=== PATIENT | male | born 1965 | race Caucasian/White ===

== ENCOUNTER 2016-05-04 04:49 | Inpatient (IN) | payer MEDICAID, OTHER ==
[2016-05-04] VITALS (13 sets, daily range): BP systolic 122–150; BP diastolic 62–89
[~2016-05-04] VITALS: Ht 180.3 cm; Wt 97.5 kg
[2016-05-04] MEDS ORDERED: Mylanta II UD 30ml ORAL ONE (05:00)
[2016-05-04] MEDS ORDERED: Lidocaine 2% Visc 15ml soln ORAL ONE (05:00)
[2016-05-04] MEDS ORDERED: Pantoprazole Inj IVP ONE (05:00)
--- NOTE | 2016-05-04 05:02 | Emergency Room Report ---
History of Present Illness General Chief Complaint: To Be Triaged Source: Patient (FLORENCIO VELAZQUEZ M.D.) Present Illness HPI This is a 51-year-old male who presents with chest pain that been ongoing for 4- 5 days now. Said is pretty persistent and constant for the last day. Described as a burning and fullness sensation to the solar plexus. Is usually worse at night. Worse when he lay flat. Said he felt a sour taste in his mouth. Similar symptoms 6 months ago and he went to [facility]. Lab work shows normal. CT scan of the chest was negative. He has not followup with anybody yet. Denies any exertional pain. No shortness of breath. No diaphoresis. He drove himself here. Radiates to back. (FLORENCIO VELAZQUEZ M.D.) Allergies: Coded Allergies: No Known Allergies (Unverified , 05/04/16) Patient History Past Medical History: see triage record, old chart reviewed Past Surgical History: none Pertinent Family History: none Social History: Denies: drug use Immunizations: other Reviewed Nursing Documentation: PMH: Agreed, PSxH: Agreed (FLORENCIO VELAZQUEZ M.D.) Review of Systems Eye: Denies: blurred vision, eye pain ENT: Denies: ear pain, nose congestion, throat swelling Respiratory: Denies: cough, shortness of breath Cardiovascular: Reports: chest pain, Denies: palpitations Gastrointestinal: Denies: abdominal pain, diarrhea, nausea, vomiting Musculoskeletal: Denies: back pain, joint pain Skin: Denies: rash Neurological: Denies: headache, numbness Endocrine: Denies: increased thirst, increased urine Hematologic/Lymphatic: Denies: easy bruising All Other Systems: negative except mentioned in HPI (FLORENCIO VELAZQUEZ M.D.) Physical Exam vitals unremarkable Sp02 EP Interpretation: reviewed, normal General Appearance: well appearing, no apparent distress, alert, obese Head: normocephalic, atraumatic Eyes: bilateral eye EOMI, bilateral eye PERRL ENT: hearing grossly normal, normal pharynx Neck: full range of motion, supple, no meningismus Respiratory: chest non-tender, lungs clear, normal breath sounds Cardiovascular #1: regular rate, rhythm, no murmur Gastrointestinal: normal bowel sounds, no mass, no organomegaly, no bruit, non- distended, tenderness - ruq Musculoskeletal: back normal, gait/station normal, normal range of motion Neurologic: alert, oriented x3 Psychiatric: mood/affect normal Skin: warm/dry (FLORENCIO VELAZQUEZ M.D.) Procedures Critical Care Time Critical Care Time Total CC time 45 minutes Care for 51 YO M with RUQ pain, leukocytosis. DDx includes Appy, acute kevin, colitis Patient is afebrile, normal vital signs Sono with ?cholecystitis Care included fluid resuscitation, imaging, serial abd exams, empiric Abx, discussions with patient on possible surgery, consult to general surgery, interpretation of laboratory results and imaging 45 minutes of critical care time was spent with this patient not including time spent performing separately reportable procedures. (CORI PATEL M.D.) Medical Decision Making Diagnostic Impression: Primary Impression: Atypical chest pain Additional Impression: Acute gangrenous cholecystitis ER Course Patient presents with chest pain but really epigastric and right upper quadrant pain. He does have an elevated white count. We'll get ultrasound to rule out cholecystitis. I see no evidence of ACS, PE, dissection in this patient. I will sign this patient out to Dr. Patel for final disposition. Lab Results Impression Labs with elevated wbc (FLORENCIO VELAZQUEZ M.D.) ER Course Received signout from Dr Velazquez at 630 am to f/up Abd sono for patient with 3-4 days RUQ/epigastric pain, worse with eating. VSS. Afebrile Labs: Leuks 18k Reviewed sono with tech. ?large gallstone in GB neck. No perichol fluid. + sonographic Claunch. Empiric Cefoxitin given Coags, T&S sent to lab Patient required additional analgesia Consulted Dr Kennedy at 820pm. Agrees with plan. Bedside currently, to take patient to OR. Admitted to Dr Bryant at 904am. (CORI PATEL M.D.) EKG Diagnostic Results Rate: normal Rhythm: NSR ST Segments: no acute changes (FLORENCIO VELAZQUEZ M.D.) Rhythm Strip Diag. Results EP Interpretation: yes Rate: 88 Rhythm: NSR, no PVC's, no ectopy (FLORENCIO VELAZQUEZ M.D.) Chest X-Ray Diagnostic Results EP Interpretation: Yes Findings: no consolidation, no effusion, no pneumothorax, no acute cardiopulmonary disease Number of Views: 1 (FLORENCIO VELAZQUEZ M.D.) CT/MRI/US Diagnostic Results CT/MRI/US Diagnostic Results : Imaging Test Ordered: US Impression Read by radiologist as acute cholecystitis. (FLORENCIO VELAZQUEZ M.D.) Status: improved (FLORENCIO VELAZQUEZ M.D.) Status: improved (CORI PATEL M.D.) Disposition: ADMITTED INPATIENT Condition: Critical FLORENCIO VELAZQUEZ M.D. May 04, 2016 05:02 CORI PATEL M.D. May 04, 2016 08:42
[2016-05-04] MEDS ORDERED: NKM (05:03)
[2016-05-04 05:40] LABS: MEAN CORPUSCULAR HEMOGLOBIN 31.1 PG (27.0-31.0); MEAN CORPUSCULAR HGB CONC 34.8 G/DL (32.0-36.0); MEAN CORPUSCULAR VOLUME 89 FL (80-99); MEAN PLATELET VOLUME 6.5 FL (6.5-10.1); PLATELET COUNT 292 K/UL (150-450); RED BLOOD COUNT 5.45 M/UL (4.70-6.10); RED CELL DISTRIBUTION WIDTH 10.7 % (11.6-14.8); WHITE BLOOD COUNT 18.1 K/UL (4.8-10.8)
[2016-05-04] MEDS ORDERED: HYDROmorphone 1mg/ml Carpuject IVP ONE ×2 (06:00→09:40)
[2016-05-04 06:02] LABS: ALANINE AMINOTRANSFERASE 21 U/L (3-41); ANION GAP 16 (5-15); ASPARTATE AMINO TRANSFERASE 14 U/L (5-40); CALCIUM 9.2 mg/dL (8.6-10.2); CARBON DIOXIDE 25 mEQ/L (20-30); CHLORIDE 100 mEQ/L (98-107); CREATININE 1.2 mg/dL (0.7-1.2); GLOMERULAR FILTRATION RATE > 60 mL/min (>60); HEMOLYSIS 12; POTASSIUM 4.5 mEQ/L (3.4-4.9); SODIUM 141 mEQ/L (135-145); TOTAL PROTEIN 7.5 g/dL (6.6-8.7)
[2016-05-04 06:09] LABS: TROPONIN I < 0.30 ng/mL (<=0.30)
[2016-05-04 07:02] LABS: BILIRUBIN,DIRECT 0.3 mg/dL (0.1-0.3)
[2016-05-04] MEDS ORDERED: cefOXitin Sod 1 GM in D5W 55 ML IVPB STA (07:50)
[2016-05-04] MEDS ORDERED: cefOXitin 1gm Inj ONE (08:07)
[2016-05-04] MEDS ORDERED: Tubing IV Cassette IV ONE (08:07)
[2016-05-04] MEDS ORDERED: D5W 55 ML IV ONE (08:07)
[2016-05-04] MEDS ORDERED: Morphine Sulfate 4mg/ml Inj IVP ONE (08:15)
[2016-05-04 09:03] LABS: INR 1.1 (0.9-1.1); PROTHROMBIN TIME 10.7 SEC (9.30-11.50)
[2016-05-04] MEDS ORDERED: LR 1000ml 1,000 ML ONE (09:04)
[2016-05-04] MEDS ORDERED: LR 1000ml 1,000 ML IV SCH (09:15)
--- NOTE | 2016-05-04 09:24 | Pre-Procedure Note/Attestation ---
Pre-Procedure Note/Attestation Complete Prior to Procedure Procedure Narrative: laparoscopic cholecystectomy, possible open Indications for Procedure Pre-Operative Diagnosis: cholelithiasis, cholecystitis Attestation I attest that I discussed the nature of the procedure; its benefits; risks and complications; and alternatives (and the risks and benefits of such alternatives ), prior to the procedure, with the patient (or the patient's legal contracts representative). I attest that, if there was a reasonable possibility of needing a blood transfusion, the patient (or the patient's legal contracts representative) was given the [facility] standardized written summary, pursuant to the [place] Blood Safety Act ([place] Health and Safety Code # 1645, as amended). I attest that I re-evaluated the patient just prior to the surgery and that there has been no change in the patient's H&P, except as documented below: RO MELGOZA May 04, 2016 09:24
--- NOTE | 2016-05-04 09:29 | General Progress Note ---
Progress Note Progress Note 51 y/o male with hx increasing abdominal pain RUQ, epigastrium for 5- 6 days after pizza meal. Similar pain off and on for about 1 year, no jaundice or dark urine. Abdominal ultrasound: impacted stone at GB neck, thick wall to 7 mm. Nl CBD Exam: t 98.6 r :16 Lungs :clear Cor: RSR Abdomen: soft , RUQ tenderness, sl fullness, ? mass. WBC 18K H/H 17/48 Lytes, LFT's: normal Impression: acute cholecystitis Plan: to [facility] for lap kevin, possible open.. Patien understands indications, risks, possible complications and wishes to proceed. To OR today. RO MELGOZA May 04, 2016 09:29
[2016-05-04] MEDS ORDERED: Iothalamate Meglumine 60% 30ML INJ ONE (09:51)
[2016-05-04] MEDS ORDERED: Bupivacaine w/Epi 0.25% 30ml Vial INJ ONE (09:51)
[2016-05-04] MEDS ORDERED: Midazolam 2mg/2ml Inj ONE ×2 (10:00)
[2016-05-04] MEDS ORDERED: Dexamethasone 4mg/ml vial ONE ×2 (10:00)
[2016-05-04] MEDS ORDERED: LR 1000ml ONE ×2 (10:00)
[2016-05-04] MEDS ORDERED: Lidocaine 1% MPF 10mg/ml 5ml ONE ×2 (10:00)
[2016-05-04] MEDS ORDERED: Ketorolac 30mg Inj ONE ×2 (10:00)
[2016-05-04] MEDS ORDERED: NS Irrig 1000ml ONE (10:00)
[2016-05-04] MEDS ORDERED: Propofol 10mg/ml 20ml IV ONE (10:00)
[2016-05-04] MEDS ORDERED: Zemuron 50mg/5ml Inj IV ONE ×2 (10:00)
[2016-05-04] MEDS ORDERED: fentaNYL 250mcg/5ml ONE (10:00)
[2016-05-04] MEDS ORDERED: Sterile Water Irrig 1000ml IRRIG ONE (10:00)
[2016-05-04] MEDS ORDERED: Succinylcholine 20mg/ml 10ml vial ONE ×2 (10:00)
[2016-05-04] MEDS ORDERED: Metoclopramide 10mg/2ml Inj ONE ×2 (10:00)
--- NOTE | 2016-05-04 10:39 | Anethesia Preoperative Eval ---
Anesthesia Pre-op PMH/ROS General Date of Evaluation: May 04, 2016 Anesthesiologist: Ryan ASA Score: ASA 2 Mallampati Score Class I : Soft palate, uvula, fauces, pillars visible Class II: Soft palate, uvula, fauces visible Class III: Soft palate, base of uvula visible Class IV: Only hard plate visible Mallampati Classification: Class II Surgeon: Brent Diagnosis: Acute cholecystitis Surgical Procedure: Laparoscopic cholecystectomy Anesthesia History: none Family History: no anesthesia problems Allergies: Coded Allergies: No Known Allergies (Unverified , 05/04/16) Medications: see eMAR Past Medical History Cardiovascular: Denies: CAD, HTN, [place], arrhythmia, other, valve dz Pulmonary: Denies: COPD, DENISE, asthma, other Gastrointestinal/Genitourinary: Reports: GERD, other - acute cholecystitis, Denies: CRI, ESRD Neurologic/Psychiatric: Denies: CVA, TIA, dementia, depression/anxiety, other Endocrine: Denies: DM, hypothyroidism, other, steroids HEENT: Denies: SELDOVIA (L), SELDOVIA (R), cataract (L), cataract (R), glaucoma, other Hematology/Immune: Denies: DVT, anemia, bleeding disorder, other Musculoskeletal/Integumentary: Denies: DDD, DJD, OA, RA, edema, other Other: other - overweight PSxH Narrative: foot sx Anesthesia Pre-op Phys. Exam Physician Exam Last Vital Signs Date Time Temp Pulse Resp B/P Pulse Ox O2 Delivery O2 Flow Rate FiO2 05/04/16 09:38 97.5 110 16 145/77 99 Room Air Constitutional: NAD, other - moderately ancxious Cardiovascular: other - tachy Airway Exam Mallampati Score: Class II MO: full ROM: full Teeth: intact Anesthesia Pre-op A/P Labs Hematology Test 05/04/16 05:05 White Blood Count 18.1 K/UL (4.8-10.8) H Red Blood Count 5.45 M/UL (4.70-6.10) Hemoglobin 17.0 G/DL (14.2-18.0) Hematocrit 48.7 % (42.0-52.0) Mean Corpuscular Volume 89 FL (80-99) Mean Corpuscular Hemoglobin 31.1 PG (27.0-31.0) H Mean Corpuscular Hemoglobin Concent 34.8 G/DL (32.0-36.0) Red Cell Distribution Width 10.7 % (11.6-14.8) L Platelet Count 292 K/UL (150-450) Mean Platelet Volume 6.5 FL (6.5-10.1) Neutrophils (%) (Auto) % (45.0-75.0) Lymphocytes (%) (Auto) % (20.0-45.0) Monocytes (%) (Auto) % (1.0-10.0) Eosinophils (%) (Auto) % (0.0-3.0) Basophils (%) (Auto) % (0.0-2.0) Coagulation Test 05/04/16 08:35 Prothrombin Time 10.7 SEC (9.30-11.50) Prothromb Time International Ratio 1.1 (0.9-1.1) Activated Partial Thromboplast Time 24 SEC (23-33) Chemistry Test 05/04/16 05:05 05/04/16 05:55 Sodium Level 141 mEQ/L (135-145) Potassium Level 4.5 mEQ/L (3.4-4.9) Chloride Level 100 mEQ/L (98-107) Carbon Dioxide Level 25 mEQ/L (20-30) Anion Gap 16 (5-15) H Blood Urea Nitrogen 12 mg/dL (7-23) Creatinine 1.2 mg/dL (0.7-1.2) Estimat Glomerular Filtration Rate > 60 mL/min (>60) Glucose Level 151 mg/dL (74-106) H Calcium Level 9.2 mg/dL (8.6-10.2) Total Bilirubin 1.7 mg/dL (0.0-1.2) H Direct Bilirubin 0.3 mg/dL (0.1-0.3) Aspartate Amino Transf (AST/SGOT) 14 U/L (5-40) Alanine Aminotransferase (ALT/SGPT) 21 U/L (3-41) Alkaline Phosphatase 102 U/L (40-129) Troponin I < 0.30 ng/mL (<=0.30) Total Protein 7.5 g/dL (6.6-8.7) Albumin 3.9 g/dL (3.5-5.2) Globulin 3.6 g/dL Albumin/Globulin Ratio 1.0 (1.0-2.7) Lipase 34 U/L (< 60) Studies Pre-op Studies: EKG - ST Risk Assessment & Plan Assessment: ASA IIE Plan: GA Status Change Before Surgery: No Pre-Antibiotics Drug: In ER Given Within 1 Hr of Incision: Yes HENRY PARKER M.D. May 04, 2016 10:39
[2016-05-04] MEDS ORDERED: LR 1000ml 1,000 ML IVLG SCH (10:40)
--- NOTE | 2016-05-04 10:40 | Immediate Post-Op Evaluation ---
Immediate Post-Op Evalulation Immediate Post-Op Evalulation Procedure: Laparoscopic cholecystectomy Date of Evaluation: May 04, 2016 Time of Evaluation: 12:13 IV Fluids: 3L Blood Products: 0 Estimated Blood Loss: 50 Urinary Output: 250 Blood Pressure Systolic: 134 Blood Pressure Diastolic: 62 Pulse Rate: 116 Respiratory Rate: 17 O2 Sat by Pulse Oximetry: 100 Temperature (Fahrenheit): 99.7 Pain Score (1-10): 0 Nausea: No Vomiting: No Complications 0 Patient Status: awake, reacts, patent, none Hydration Status: adequate Drug: In ER Given Within 1 Hr of Incision: Yes HENRY PARKER M.D. May 04, 2016 10:40
[2016-05-04] MEDS ORDERED: Midazolam 2mg/2ml Inj IVP PRN (10:45)
[2016-05-04] MEDS ORDERED: DiphenhydrAMINE 50mg/ml Inj IVP PRN ×2 (10:45→12:15)
[2016-05-04] MEDS ORDERED: Ketorolac 30mg Inj IV PRN (10:45)
[2016-05-04] MEDS ORDERED: LORazepam Inj 2mg/ml 1ml IV PRN (10:45)
[2016-05-04] MEDS ORDERED: Labetalol 5mg/ml 20ml vial IV PRN (10:45)
[2016-05-04] MEDS ORDERED: fentaNYL 100 mcg/2 mL IV PRN (10:45)
[2016-05-04] MEDS ORDERED: Hydromorphone 0.5mg/0.5ml inj IVP PRN ×2 (10:45→12:15)
[2016-05-04] MEDS ORDERED: Metoclopramide 10mg/2ml Inj IVP PRN (10:45)
[2016-05-04] MEDS ORDERED: Surgicel 4in x 8in TOPIC ONE (11:49)
--- NOTE | 2016-05-04 12:14 | Brief Operative Note ---
Immediate Post Operative Note Operative Note Pre-op Diagnosis: cholelithiasis, cholecystitis Procedure: laparoscopic cholecystectomy Post-op Diagnosis: same as pre-op - early gangrenous cholecystitis with multiple small stnes and sludge Surgeon: micheline Vehicle Washer: Renee Anesthesiologist: herbie Anesthesia: general Specimen: yes Complications: none Condition: stable Estimated Blood Loss: volume - 100cc Drains: none Implant(s) used?: No RO MELGOZA May 04, 2016 12:14
[2016-05-04] MEDS ORDERED: Ketorolac 30mg Inj IM PRN (12:15)
[2016-05-04] MEDS ORDERED: Norco 5mg/325mg tab ORAL PRN (12:15)
[2016-05-04] MEDS ORDERED: Norco 10mg/325mg tab ORAL PRN (12:15)
[2016-05-04] MEDS ORDERED: Acetaminophen 650 MG SUPP RECTAL PRN (12:15)
[2016-05-04] MEDS: cefOXitin Sod 1 GM in D5W 55 ML IV SCH ×2 (17:00→22:03)
[2016-05-04] MEDS: D5 1/2NS w/KCl 20mEq 1,000 ML IV SCH (17:00)
[2016-05-04] MEDS: HYDROmorphone 1mg/ml Carpuject IVP PRN ×2 (19:52→23:00)
--- NOTE | 2016-05-04 20:27 | Operative Note - Dictated ---
DATE OF OPERATION: 05/04/2016 SURGEON: Regan Kennedy M.D. CONSUMER INSIGHT MANAGER: Jon Duran M.D. ANESTHESIOLOGIST: Almita Sims M.D. ANESTHESIA: General endotracheal tube. PREOPERATIVE DIAGNOSIS: Acute cholecystitis. POSTOPERATIVE DIAGNOSIS: Acute gangrenous cholecystitis. NAME OF OPERATION: Laparoscopic cholecystectomy. FINDINGS AND INDICATIONS: The patient is a 51-year-old male, who has a history of five to six days of increasing abdominal pain in the epigastrium into the lower chest and the right upper quadrant, after he had a large amount of pizza five to six days ago. He had some nausea, no vomiting, some history of reflux. He came [place] [id number], significant tenderness in the right upper quadrant and epigastrium, EKG was normal, and then had a abdominal ultrasound revealed a very distended thickened gallbladder wall with multiple small stones and possibly an impacted stone in the neck of the gallbladder, normal size common bile duct. There is no history of jaundice or dark urine and liver function tests were normal. At surgery indeed a very inflamed gallbladder was found with distention, early gangrenous changes of the hip. The procedure was done with quite tedious dissection, but successful removal laparoscopically. PROCEDURE: With the patient lying in the supine position on the operating table, under general anesthesia with the entire abdominal region prepped draped in usual sterile fashion with Betadine, a supraumbilical stab incision was made. The Veress needle was introduced and 3.5 liters of CO2 insufflated. The incision was then enlarged and a 5 mm trocar advanced through which a laparoscope was placed visualizing the above findings. A separate subxiphoid, a 11 mm trocar was placed and two 5-mm trocars in the right mid abdomen and right upper quadrant in which gallbladder fundus and body were placed on traction. Retrograde dissection of the gallbladder was continued of the cystic duct and the cystic artery, after significant dissection I was able to dissect, double clip and transect. That area was irrigated. Hemostasis adequate. Retrograde dissection was continued as well as antegrade dissection mobilizing the entire gallbladder at removing it off the liver bed. The liver bed was then cauterized completely and small piece of Surgicel placed. The gallbladder was removed through the EndoCatch device and sent to pathology. This was done after enlarging the subxiphoid incision to about 3 cm in length. Specimen was sent to pathology. The subhepatic and subdiaphragmatic areas were then irrigated with ample amounts of normal saline. Hemostasis was double checked which was adequate with the cautery and then the CO2 was deflated. Trocars were removed and the incision was closed with 0 Vicryl fascial sutures and 4-0 Vicryl subcuticular sutures and Steri-Strips. Marcaine 0.5% with epinephrine 25 mL was injected for long-acting local anesthetic. The patient tolerated procedure well. Estimated blood loss was less than 100 mL. Sponge and needle counts were correct. He went to the recovery room in stable condition. Regan Kennedy M.D. DR: Ambreen JOB#: [id number] CC:
[2016-05-04] MEDS: Heparin 5000 units/ml inj SUBQ SCH (22:09)
[2016-05-05] VITALS: BP 116/73
[2016-05-05] MEDS: D5 1/2NS w/KCl 20mEq 1,000 ML IV SCH ×3 (03:41→21:30)
[2016-05-05 04:00] VITALS: BP 121/71
[2016-05-05] MEDS: cefOXitin Sod 1 GM in D5W 55 ML IV SCH (04:20)
[2016-05-05 07:15] LABS: ANION GAP 12 (5-15); CALCIUM 8.7 mg/dL (8.6-10.2); CARBON DIOXIDE 25 mEQ/L (20-30); CHLORIDE 101 mEQ/L (98-107); GLOMERULAR FILTRATION RATE > 60 mL/min (>60); HEMOLYSIS 0; POTASSIUM 4.6 mEQ/L (3.4-4.9); SODIUM 138 mEQ/L (135-145)
[2016-05-05 07:28] LABS: MEAN CORPUSCULAR HEMOGLOBIN 30.2 PG (27.0-31.0); MEAN CORPUSCULAR HGB CONC 34.2 G/DL (32.0-36.0); MEAN CORPUSCULAR VOLUME 88 FL (80-99); MEAN PLATELET VOLUME 6.5 FL (6.5-10.1); PLATELET COUNT 272 K/UL (150-450); RED BLOOD COUNT 4.53 M/UL (4.70-6.10); RED CELL DISTRIBUTION WIDTH 10.9 % (11.6-14.8); WHITE BLOOD COUNT 18.4 K/UL (4.8-10.8)
[2016-05-05 08:00] VITALS: BP 120/75
[2016-05-05] MEDS: Heparin 5000 units/ml inj SUBQ SCH ×2 (08:38→22:42)
--- NOTE | 2016-05-05 09:42 | 48 Hour Post Anesthesia Eval ---
Post Anesthesia Evaluation Procedure: Laparoscopic cholecystectomy Date of Evaluation: May 05, 2016 Time of Evaluation: 09:41 Blood Pressure Systolic: 134 0: 72 Pulse Rate: 78 Respiratory Rate: 20 Temperature (Fahrenheit): 97.6 O2 Sat by Pulse Oximetry: 98 Airway: patent Nausea: No Vomiting: No Pain Intensity: 4 Hydration Status: adequate Cardiopulmonary Status: stable Mental Status/LOC: patient returned to baseline Follow-up Care/Observations: n/a Post-Anesthesia Complications: none Follow-up care needed: N/A PABLO ÁLVAREZ M.D. May 05, 2016 09:42
--- NOTE | 2016-05-05 10:52 | General Progress Note ---
Progress Note Progress Note Patient seen and examined at bedside. doing well. improved. pain improved. no n/v/f/c. tolerating oral diet. ambulatory labs reviewed and still with significant leukocytosis. Afebrile, HD stable, NAD abd soft, nt/nd, incisions clean POD #1 s/p lap kevin for gangrenous cholecystitis. would like to see leukocytosis trending down prior to discharge. repeat labs (cbc/cmp) this evening 17:00 -if labs improved will d/c home this evening -if labs not improved will remain Walker Sorenson MD May 05, 2016 10:52
[2016-05-05 10:53] LABS: BAND NEUTROPHILS % (MANUAL) 0 % (0-8); BASOPHILS % (MANUAL) 0 % (0-2); EOSINOPHILS % (MANUAL) 0 % (0-3); LYMPHOCYTES % (MANUAL) 2 % (20-45); NEUTROPHILS % (MANUAL) 91 % (45-75); PLATELET ESTIMATE ADEQUATE; PLATELET MORPHOLOGY NORMAL; TOTAL CELLS COUNTED 100
[2016-05-05] MEDS: HYDROmorphone 1mg/ml Carpuject IVP PRN ×2 (15:23→18:52)
[2016-05-05 16:00] VITALS: BP 136/90
[2016-05-05 16:01] LABS: MEAN CORPUSCULAR HEMOGLOBIN 30.3 PG (27.0-31.0); MEAN CORPUSCULAR HGB CONC 33.8 G/DL (32.0-36.0); MEAN CORPUSCULAR VOLUME 90 FL (80-99); MEAN PLATELET VOLUME 6.8 FL (6.5-10.1); PLATELET COUNT 323 K/UL (150-450); RED BLOOD COUNT 4.82 M/UL (4.70-6.10); RED CELL DISTRIBUTION WIDTH 11.2 % (11.6-14.8); WHITE BLOOD COUNT 20.7 K/UL (4.8-10.8)
[2016-05-05 16:15] LABS: ALANINE AMINOTRANSFERASE 56 U/L (3-41); ANION GAP 14 (5-15); ASPARTATE AMINO TRANSFERASE 39 U/L (5-40); CALCIUM 9.1 mg/dL (8.6-10.2); CARBON DIOXIDE 25 mEQ/L (20-30); CHLORIDE 102 mEQ/L (98-107); GLOMERULAR FILTRATION RATE > 60 mL/min (>60); HEMOLYSIS 3; POTASSIUM 5.5 mEQ/L (3.4-4.9); SODIUM 141 mEQ/L (135-145); TOTAL PROTEIN 6.9 g/dL (6.6-8.7)
[2016-05-05 18:26] LABS: BAND NEUTROPHILS % (MANUAL) 2 % (0-8); BASOPHILS % (MANUAL) 0 % (0-2); EOSINOPHILS % (MANUAL) 0 % (0-3); LYMPHOCYTES % (MANUAL) 6 % (20-45); NEUTROPHILS % (MANUAL) 84 % (45-75); PLATELET ESTIMATE ADEQUATE; TOTAL CELLS COUNTED 100
[2016-05-05 18:27] LABS: PLATELET MORPHOLOGY NORMAL; POLYCHROMASIA 1+
[2016-05-05] MEDS: Piperacillin/Tazobactam 3.375 GM in D5W 110 ML IVPB SCH (22:40)
[2016-05-06] VITALS: BP 121/73
[2016-05-06] MEDS: Piperacillin/Tazobactam 3.375 GM in D5W 110 ML IVPB SCH (05:41)
[2016-05-06 06:34] LABS: BASOPHILS % (AUTO) 0.4 % (0.0-2.0); EOSINOPHILS % (AUTO) 0.5 % (0.0-3.0); LYMPHOCYTES % (AUTO) 14.9 % (20.0-45.0); MEAN CORPUSCULAR HEMOGLOBIN 30.7 PG (27.0-31.0); MEAN CORPUSCULAR HGB CONC 34.4 G/DL (32.0-36.0); MEAN CORPUSCULAR VOLUME 89 FL (80-99); MEAN PLATELET VOLUME 7.3 FL (6.5-10.1); MONOCYTES % (AUTO) 7.5 % (1.0-10.0); NEUTROPHILS % (AUTO) 76.7 % (45.0-75.0); PLATELET COUNT 283 K/UL (150-450); RED BLOOD COUNT 4.38 M/UL (4.70-6.10); RED CELL DISTRIBUTION WIDTH 11.1 % (11.6-14.8); WHITE BLOOD COUNT 12.1 K/UL (4.8-10.8)
[2016-05-06 07:02] LABS: ANION GAP 11 (5-15); CALCIUM 8.8 mg/dL (8.6-10.2); CARBON DIOXIDE 29 mEQ/L (20-30); CHLORIDE 103 mEQ/L (98-107); CREATININE 1.1 mg/dL (0.7-1.2); GLOMERULAR FILTRATION RATE > 60 mL/min (>60); HEMOLYSIS 1; POTASSIUM 4.9 mEQ/L (3.4-4.9); SODIUM 143 mEQ/L (135-145)
[2016-05-06 08:00] VITALS: BP 144/84
[2016-05-06] MEDS: Heparin 5000 units/ml inj SUBQ SCH (09:29)
[2016-05-06 12:00] VITALS: BP 146/70
--- NOTE | 2016-05-06 12:55 | General Surgery Progress Note ---
General Surgery-Progress Note Subjective Symptoms: improved Objective Last 24 Hour Vital Signs Date Time Temp Pulse Resp B/P Pulse Ox O2 Delivery O2 Flow Rate FiO2 05/06/16 10:29 98.1 05/06/16 08:00 99.0 18 144/84 96 Room Air 05/06/16 00:00 98.1 74 20 121/73 92 Room Air 05/05/16 19:22 97.9 05/05/16 16:00 97.9 87 20 136/90 96 Room Air I&O Intake and Output 05/05/16 05/06/16 19:00 07:00 Intake Total 2120 ml 120 ml Balance 2120 ml 120 ml Intake Oral 1320 ml 120 ml IV Total 800 ml # Voids 3 1 # Bowel Movements 1 Dressing: dry Wound: clean Drains: none Cardiovascular: RSR Respiratory: clear Abdomen: soft Extremities: no edema Laboratory Tests Test 05/05/16 15:46 05/06/16 06:15 White Blood Count 20.7 K/UL (4.8-10.8) H 12.1 K/UL (4.8-10.8) H Red Blood Count 4.82 M/UL (4.70-6.10) 4.38 M/UL (4.70-6.10) L Hemoglobin 14.6 G/DL (14.2-18.0) 13.4 G/DL (14.2-18.0) L Hematocrit 43.2 % (42.0-52.0) 39.0 % (42.0-52.0) L Mean Corpuscular Volume 90 FL (80-99) 89 FL (80-99) Mean Corpuscular Hemoglobin 30.3 PG (27.0-31.0) 30.7 PG (27.0-31.0) Mean Corpuscular Hemoglobin Concent 33.8 G/DL (32.0-36.0) 34.4 G/DL (32.0-36.0) Red Cell Distribution Width 11.2 % (11.6-14.8) L 11.1 % (11.6-14.8) L Platelet Count 323 K/UL (150-450) 283 K/UL (150-450) Mean Platelet Volume 6.8 FL (6.5-10.1) 7.3 FL (6.5-10.1) Neutrophils (%) (Auto) % (45.0-75.0) 76.7 % (45.0-75.0) H Lymphocytes (%) (Auto) % (20.0-45.0) 14.9 % (20.0-45.0) L Monocytes (%) (Auto) % (1.0-10.0) 7.5 % (1.0-10.0) Eosinophils (%) (Auto) % (0.0-3.0) 0.5 % (0.0-3.0) Basophils (%) (Auto) % (0.0-2.0) 0.4 % (0.0-2.0) Differential Total Cells Counted 100 Neutrophils % (Manual) 84 % (45-75) H Lymphocytes % (Manual) 6 % (20-45) L Monocytes % (Manual) 8 % (1-10) Eosinophils % (Manual) 0 % (0-3) Basophils % (Manual) 0 % (0-2) Band Neutrophils 2 % (0-8) Platelet Estimate Adequate Platelet Morphology Normal Polychromasia 1+ Sodium Level 141 mEQ/L (135-145) 143 mEQ/L (135-145) Potassium Level 5.5 mEQ/L (3.4-4.9) H 4.9 mEQ/L (3.4-4.9) Chloride Level 102 mEQ/L (98-107) 103 mEQ/L (98-107) Carbon Dioxide Level 25 mEQ/L (20-30) 29 mEQ/L (20-30) Anion Gap 14 (5-15) 11 (5-15) Blood Urea Nitrogen 15 mg/dL (7-23) 14 mg/dL (7-23) Creatinine 1.0 mg/dL (0.7-1.2) 1.1 mg/dL (0.7-1.2) Estimat Glomerular Filtration Rate > 60 mL/min (>60) > 60 mL/min (>60) Glucose Level 95 mg/dL (74-106) 109 mg/dL (74-106) H Calcium Level 9.1 mg/dL (8.6-10.2) 8.8 mg/dL (8.6-10.2) Total Bilirubin 0.7 mg/dL (0.0-1.2) Aspartate Amino Transf (AST/SGOT) 39 U/L (5-40) Alanine Aminotransferase (ALT/SGPT) 56 U/L (3-41) H Alkaline Phosphatase 89 U/L (40-129) Total Protein 6.9 g/dL (6.6-8.7) Albumin 3.6 g/dL (3.5-5.2) Globulin 3.3 g/dL Albumin/Globulin Ratio 1.0 (1.0-2.7) Plan Additional Comments Leukocytosis is improving, pt is tolerating regular diet. We will discharge him off antibiotics. Will follow up with Dr Sorenson on 05-09-16. Lemuel Petersen MD May 06, 2016 12:55
[2016-05-06] MEDS ORDERED: NORCO 5-325 TA1 EAC1 ORAL (14:09)
--- NOTE | 2016-05-07 09:39 | Diagnostic Imaging Report ---
Indication:Abdominal pain Technique: Grayscale and duplex Doppler imaging of the abdomen performed. Comparison: None Findings: Gallbladder is distended and there are multiple layering stones and sludge within the gallbladder lumen. Sonographic Laguerre's is reported as positive per technologist. CBD is between 3 and 4 mm in diameter. The liver, demonstrated part of the pancreas, aorta and IVC, both kidneys, spleen appear unremarkable. There is no biliary ductal dilatation identified. Doppler evaluation of the main portal vein shows patency. There is no ascites. No hydronephrosis seen. Impression: Suspected cholecystitis.
--- NOTE | 2016-05-07 09:39 | Diagnostic Imaging Report ---
Indication: Chest Pain Comparison: None A single view chest radiograph was obtained. Findings: Cardiomediastinal appearance is within normal limits for age. Pulmonary vascularity is appropriate. The diaphragmatic contour is smooth and costophrenic angles are sharp. No pleural effusions are identified. The bones are unremarkable. Impression: No acute findings
--- NOTE | 2016-05-08 10:13 | Discharge Summary ---
Discharge Summary Hospital Course Date of Admission May 04, 2016 at 14:33 Date of Discharge May 06, 2016 at 14:50 Admitting Diagnosis cholecystitis Reason for Hospitalization: chest pain, RUQ pain HPI Macario Ellis is a 51 year old male who was admitted on May 04, 2016 at 14:33 for Acute Grangrenous Cholycystitis Procedures 05/04 lap kevin Hospital Course 51 y/old male admitted with acute gangrenous cholecystitis Surgeon seen and evaluated urgently patient undergone lap kevin on the same day, 05/04 patient with leukocytosis was on empiric IV abx pain management provided Course of recovery uneventful leukocytosis trending down able to tolerate diet pain controlled voided freely ambulants Surgery recommend off abx and fup with surgeon on 05/09 surgeon cleared for discharge Discharge Medications Continued Medications: Hydrocodone Bit/Acetaminophen 5-325* ([place] 5-325 Tablet*) 1 Each Tablet 1 TAB ORAL Q4H PRN for For Pain, TAB Discharge Condition Upon Discharge: improving, stable Discharge Disposition Patient was discharged to Home () Follow up with surgeon dr Sorenson 05/09/16 Discharge Diagnoses: (1) Leukocytosis (2) Acute gangrenous cholecystitis (3) S/P laparoscopic cholecystectomy Omega (oJse)Loulou NP May 08, 2016 10:13
--- NOTE | 2016-06-01 17:10 | Pre-op HX & Phy Repo 2 SIG ---
DATE OF ADMISSION: 05/04/2016 PERTINENT HISTORY: The patient is a 51-year-old male, with a history of five to six days of increasing abdominal pain in the epigastrium and to the lower chest and the right upper quadrant after eating a large amount of pizza five to six days before this. He had some nausea, no vomiting, and there was a history of reflux. He came to the emergency room at [facility] with a white blood count of 18,000 and significant tenderness in the right upper quadrant and epigastrium. Electrocardiogram was normal, and an abdominal ultrasound revealed a very distended thickened gallbladder wall and multiple stones with an impacted stone in the neck of the gallbladder and a normal size common bile duct. There was no history of jaundice or dark urine. PAST MEDICAL HISTORY: Pertinent for reflux and obesity. PHYSICAL EXAMINATION: VITAL SIGNS: Blood pressure is 128/82, temperature is 98.6, pulse is 78, and respirations are 18. GENERAL: A well-developed, ill-appearing, middle-aged male, in no distress. HEENT: Normal. NECK: Supple. No scleral icterus. The mouth and throat are clear. ABDOMEN: Soft and flat. Bowel sounds are normoactive. There is 2+ right upper quadrant tenderness with guarding. No mass. EXTREMITIES: Good range of motion. No edema or cyanosis. IMPRESSION: Acute cholecystitis. PLAN: The patient will undergo laparoscopic cholecystectomy, possible open laparotomy for removal of gallbladder. He understands the nature of the procedure, the indications, risks, benefits, and possible complications and he wishes to procedure. Regan Kennedy M.D. DR: DESIREE JOB#: [id number] CC:
--- NOTE | 2016-06-10 03:13 | Cardiology Report ---
APPROVED REPORT EKG Measurement Heart [id number] Normal sinus rhythm with sinus arrhythmia Normal ECG
== END 2016-05-06 14:50 | disposition home or self-care (01) | DRG 419 ==
LOC: EMR 04:59 → EDBEDREQ 09:03 → SUR 09:08 → EDBEDREQ 09:18 → 3E 14:33
PROC: 0FT44ZZ Resection of Gallbladder, Percutaneous Endoscopic Approach (ICD-10-PCS; principal; 2016-05-04 10:30)
DX: K80.00 Calculus of gallbladder with acute cholecystitis without obstruction (principal); K21.9 Gastro-esophageal reflux disease without esophagitis; R07.89 Other chest pain
CPT/HCPCS: 36415; 71010; 76700; 80048; 80053; 82248; 83690; 84484; 85007; 85025; 85610; 85730; 86850; 86900; 86901; 93005; 94003; 94150; J2250; J2405; J2765